=== PATIENT | female | born 1990 | race Hispanic/Latino ===

== ENCOUNTER 2020-02-13 00:46 | Emergency (ER) | payer SELFPAY ==
[2020-02-13 01:41] VITALS: BP 122/83; PULSE 108; RESP 20; TEMP 36; O2SAT 100
--- NOTE | 2020-02-13 04:05 | ED.GENADULT ---
HPI - General Adult General Chief complaint: Unspecified Stated complaint: RECTAL PAIN Time Seen by Provider: 02/13/20 03:40 Source: patient Mode of arrival: ambulatory Limitations: no limitations History of Present Illness HPI narrative: This patient is a 29 year old female who presents for evaluation of rectal pain x 4 days. PAtient states she was diagnosed with hemorrhoids last year at the time of of her baby. She reports rectal pain for 4 days . She states she noticed blood when she wiped 4 days ago but denies any rectal bleeding today. She denies constipation, nausea, vomiting or fever. She denies using any treatment for her hemorrhoids. Related Data Allergies Allergy/AdvReac Type Severity Reaction Status Date / Time No Known Allergies Allergy Verified 02/13/20 03:15 Review of Systems Review of Systems: All systems reviewed & are unremarkable except as noted in HPI and below PMFSH Past Medical History Medical History (Updated 02/13/20 @ 04:14 by Robyn Clifford MD) Patient denies medical problems Surgical History Surgical History (Updated 02/13/20 @ 04:08 by Robyn Clifford MD) Previous section Social History Social History Smoking status: Never smoker Alcohol intake: never Gender identity (if verbalized by the patient): Female Exam Const: General: cooperative, comfortable, no acute distress, alert, awake and Physically active HENMT: Head: normocephalic and atraumatic Eyes: EOM: EOMs intact bilaterally Chest: Chest palpation & inspection: normal inspection of the chest Resp: Effort & Inspection: normal respiratory effort and able to speak in complete sentences Auscultation: clear to auscultation bilaterally Cardio: Rate: regular rate Rhythm: regular rhythm GI: GI Palp: Yes Soft to palpation, No Tenderness to palpation present (GI) and No Guarding due to palpation present (GI) Rectal Exam: External hemorrhoid(s) present (no bleeding, no definite thrombosis) Course Reevaluation(s) Reevaluation #1: I have discussed with patient that she has external hemorrhoid and she will be treated with sitz bath, proctofoam with stool softeners. Date: 02/13/20 Time: 04:09 Vital Signs Vital signs: Vital Signs Temperature 96.8 F L 02/13/20 01:41 Pulse Rate 108 H 02/13/20 01:41 Respiratory Rate 20 02/13/20 01:41 Blood Pressure 122/83 02/13/20 01:41 Pulse Oximetry 100 02/13/20 01:41 Temperature 96.8 F L 02/13/20 01:41 Pulse Rate 72 02/13/20 04:29 Respiratory Rate 16 02/13/20 04:29 Blood Pressure 106/80 02/13/20 04:29 Pulse Oximetry 99 02/13/20 04:29 Medical Decision Making Vital Signs Vital Signs: Vital Signs Temperature 96.8 F L 02/13/20 01:41 Pulse Rate 108 H 02/13/20 01:41 Respiratory Rate 20 02/13/20 01:41 Blood Pressure 122/83 02/13/20 01:41 Pulse Oximetry 100 02/13/20 01:41 Temperature 96.8 F L 02/13/20 01:41 Pulse Rate 72 02/13/20 04:29 Respiratory Rate 16 02/13/20 04:29 Blood Pressure 106/80 02/13/20 04:29 Pulse Oximetry 99 02/13/20 04:29 Discharge Plan Discharge Clinical Impression: External hemorrhoids Patient Disposition: Home, Self-Care Condition: Stable Instructions: Antibiotic Form, Hemorrhoids (ED), Sitz Bath (DC) Additional Instructions: Today you were found to hemorrhoids. It is recommended that you perform sitz baths 2 to 3 times a day to help with swelling. Use cream as prescribed. You can followup with a surgeon for evaluation of your hemorrhoids Prescriptions: New Proctofoam HC 1-1 % foam 1 applic NH QID PRN (Reason: hemorrhoids) Qty: 10 RF: 0 docusate sodium [Colace] 100 mg capsule 100 mg PO BID Qty: 14 RF: 0 hydrocodone-acetaminophen [[place]] 5-325 mg tablet 1 tablet PO Q6H PRN (Reason: pain) Qty: 5 RF: 0 Follow-up/Referrals: Jason El Jr., MD [Physician] - PHYSICIAN,SYSTEMS ARCHITECT [Primary Care Provider] - Jah Cruz
[2020-02-13 04:29] VITALS: BP 106/80; PULSE 72; RESP 16; O2SAT 99
== END 2020-02-13 04:30 | disposition home or self-care (01) ==
PROVIDERS: Emergency Provider General Practice
DX: K64.4 Residual hemorrhoidal skin tags (principal)
CPT/HCPCS: 99283